=== PATIENT | female | born 1955 | race Caucasian/White ===

== ENCOUNTER 2022-10-25 17:27 | Emergency (ER) | payer MEDICARE, OTHER ==
[2022-10-25] MEDS ORDERED: Tetracaine HCl/PF 0.5% 4 ML Bottle EYERT STA (18:00)
[2022-10-25] MEDS ORDERED: Diphtheria,Pertussis(Acell),Tetanus Vaccine 0.5 ML Syringe IM ONE (18:25)
== END 2022-10-25 18:49 | disposition home or self-care (01) ==
LOC: MW.ED 17:27
DX: S05.01XA Injury of conjunctiva and corneal abrasion without foreign body, right eye, initial encounter (principal); Z23 Encounter for immunization; X58.XXXA Exposure to other specified factors, initial encounter
CPT/HCPCS: 90471; 90715; 99283-25; J3490